=== PATIENT | male | born 1980 ===

== ENCOUNTER 2021-08-01 07:10 | Emergency (ER) | payer SELFPAY ==
--- NOTE | 2021-08-01 08:22 | RAD REPORT ---
EXAM DESCRIPTION: US - Extremity Venous Uni Ltd - 08/01/2021 7:46 am CLINICAL HISTORY: PAIN COMPARISON: No comparisons FINDINGS: Positive for deep venous thrombosis at the common femoral vein, greater saphenous vein, an d deep femoral vein. The clot in the common femoral vein is nonocclusive. IMPRESSION: Positive for nonocclusive thrombus in the common femoral vein and greater saphenous vein . Equivocal for thrombus in the deep femoral vein.
[2021-08-01 08:49] LABS: Absolute Lymphocytes (CBC) 0.8 K/uL (0.7-4.9); Basophils % 0.6 % (0-1.3); Hematocrit 38.4 % (39.6-49.0); Lymphocytes % 12.2 % (15.3-44.8); MPV 9.3 fL (7.6-11.3); RBC Red Blood Cell Count 4.57 M/uL (4.33-5.43)
[2021-08-01 08:52] LABS: Protime INR 1.19
[2021-08-01 09:09] LABS: ALT/SGPT 34 U/L (12-78); AST/SGOT 18 U/L (15-37); Albumin 4.3 g/dL (3.4-5.0); Alkaline Phosphatase 85 U/L (45-117); BUN Blood Urea Nitrogen 15 mg/dL (7-18); Bicarbonate 25 mmol/L (21-32); Bilirubin Direct 0.1 mg/dL (0-0.2); Bilirubin Total 0.5 mg/dL (0.2-1.0); Glucose Level 94 mg/dL (74-106); NT PRO-BNP 30 pg/mL (<125); Potassium 3.7 mmol/L (3.5-5.1); Protein, Total 8.3 g/dL (6.4-8.2); Sodium Level 140 mmol/L (136-145); Troponin (Emerg Dept Use Only) < 0.02 ng/mL (0.0-0.045)
--- NOTE | 2021-08-01 09:36 | RAD REPORT ---
EXAM DESCRIPTION: CT - Chest For Pe Angio - 08/01/2021 9:21 am CLINICAL HISTORY: r/o pe, positive dvt COMPARISON: No comparisons FINDINGS: Chest Wall: No suspicious thyroid nodules or pathologic lymphadenopathy. Lungs: No acute abnormality. Pleura: No significant effusions or pneumothorax. Mediastinum/nallely: No pathologic lymphadenopathy. Pulmonary arteries/Aorta: No filling defect identified. No aortic aneurysm. Heart: No significant pericardial effusion. Normal heart size. Upper abdomen: No acute abnormality. Bones: No acute abnormality. All CT scans are performed using dose optimization technique as appropriate and may include automated exposure control or mA/KV adjustment according to patient size. IMPRESSION: Negative for pulmonary embolism. No acute findings within the chest.
--- NOTE | 2021-08-01 09:57 | EDPHYS ---
Physician Documentation [facility] Name: Sarkis Fernandez Age: 41 yrs Sex: Male : 1980 Arrival Date: 08/01/2021 Time: 07:13 Bed 19 Private MD: ED Physician Lee Nixon HPI: 08/01 16:47 This 41 yrs old Unknown Male presents to ER via Ambulatory with complaints of Leg kb Swelling, Leg Pain. 16:47 The patient presents with pain, swelling, tenderness. The complaints affect the right kb leg. Context: The problem was sustained at home, resulted from an unknown cause, the patient can fully bear weight, the patient is able to ambulate. Onset: The symptoms/episode began/occurred today. Modifying factors: The symptoms are alleviated by nothing. the symptoms are aggravated by nothing. Associated signs and symptoms: Pertinent positives: calf tenderness, swelling, Pertinent negatives fever, nausea, numbness, rash, tingling, vomiting, warmth, weakness. Treatment prior to arrival includes: no previous treatment. Severity of symptoms: At their worst the symptoms were mild, in the emergency department the symptoms are unchanged. The patient has not experienced similar symptoms in the past. The patient has not recently seen a physician. Pt reports redness, swelling, and pain to right leg. States he had the J\T\J shot on 07/29/21 and flew from [place] to [place] yesterday so he is concerned about a blood clot. Historical: - Allergies: 07:22 No Known Allergies; ll1 - PMHx: 07:22 None; ll1 - PSHx: 07:22 None; ll1 - Immunization history:: Client reports receiving the Igor \T\ Igor single-dose vaccine. - Social history:: Smoking status: Patient denies any tobacco usage or history of. ROS: 16:47 Constitutional: Negative for fever, chills, and weight loss. kb 16:47 MS/extremity: Positive for erythema, pain, swelling, tenderness, of the right leg. 16:47 All other systems are negative. Exam: 09:08 ECG was reviewed by the Attending Physician. kb 09:38 Constitutional: This is a well developed, well nourished patient who is awake, alert, kb and in no acute distress. Head/Face: Normocephalic, atraumatic. ENT: Moist Mucous membranes Cardiovascular: Regular rate and rhythm with a normal S1 and S2. No gallops, murmurs, or rubs. No pulse deficits. Respiratory: Respirations even and unlabored. No increased work of breathing, no retractions or nasal flaring. Abdomen/GI: Soft, non-tender. No distention Skin: Warm, dry with normal turgor. Normal color. Neuro: Awake and alert, GCS 15, oriented to person, place, time, and situation. Moves all extremities. Normal gait. Psych: Awake, alert, with orientation to person, place and time. Behavior, mood, and affect are within normal limits. 09:38 Musculoskeletal/extremity: Extremities: grossly normal except: noted in the right leg: pain, swelling, ROM: intact in all extremities, Circulation is intact in all extremities. Sensation intact. DVT Exam: pain, swelling, tenderness, erythema. Vital Signs: 07:22 BP 133 / 89; Pulse 107; Resp 18; Temp 98.3; Pulse Ox 100% ; Weight 86.18 kg; Height 5 ll1 ft. 5 in. (165.10 cm); Pain 10/10; 07:55 BP 139 / 101; Pulse 94; Resp 18; Pulse Ox 99% on R/A; mh5 08:00 BP 139 / 101; Pulse 94; Resp 16; Pulse Ox 99% ; Pain 10/10; tc5 09:14 BP 134 / 98; Pulse 89; Resp 16; Pulse Ox 99% ; Pain 10/10; tc5 10:55 BP 142 / 106; Pulse 85; Resp 16; Pulse Ox 100% ; Pain 0/10; tc5 07:22 Body Mass Index 31.62 (86.18 kg, 165.10 cm) ll1 MDM: 07:19 Patient medically screened. kb 09:40 Data reviewed: vital signs, nurses notes. Data interpreted: Pulse oximetry: on room air kb is 99 %. Interpretation: normal. Counseling: I had a detailed discussion with the patient and/or guardian regarding: the historical points, exam findings, and any diagnostic results supporting the discharge/admit diagnosis, lab results, radiology results, the need for outpatient follow up, a family practitioner, to return to the emergency department if symptoms worsen or persist or if there are any questions or concerns that arise at home. 08/01 08:29 Order name: Basic Metabolic Panel kb 08/01 08:29 Order name: CBC with Diff; Complete Time: 08:51 kb 08/01 08:29 Order name: LFT's; Complete Time: 09:09 kb 08/01 08:29 Order name: Magnesium; Complete Time: 09:09 kb 08/01 08:29 Order name: NT PRO-BNP; Complete Time: 09:09 kb 08/01 08:29 Order name: PT-INR; Complete Time: 09:07 kb 08/01 07:21 Order name: US Extremity Venous Unilateral Ltd; Complete Time: 08:26 kb 08/01 08:29 Order name: Troponin (emerg Dept Use Only); Complete Time: 09:09 kb 08/01 08:29 Order name: EKG; Complete Time: 08:29 kb 08/01 08:29 Order name: Cardiac monitoring; Complete Time: 08:44 kb 08/01 08:29 Order name: EKG - Nurse/Tech; Complete Time: 08:44 kb 08/01 08:29 Order name: CT Chest For PE Angio; Complete Time: 09:37 kb 08/01 08:29 Order name: Basic Metabolic Panel; Complete Time: 09:09 EDMS 08/01 08:29 Order name: IV Saline Lock; Complete Time: 08:44 kb 08/01 08:29 Order name: Labs collected and sent; Complete Time: 08:44 kb 08/01 08:29 Order name: O2 Per Protocol; Complete Time: 08:44 kb 08/01 08:29 Order name: O2 Sat Monitoring; Complete Time: 08:44 kb EC:08 Rate is 87 beats/min. Rhythm is regular. QRS [place] is Normal. MN interval is normal at kb 160 msec. QRS interval is normal at 82 msec. QT interval is normal at 350 msec. Administered Medications: 10:32 Drug: Eliquis (apixaban) 10 mg Route: PO; tc5 10:53 Follow up: Response: No adverse reaction tc5 Disposition Summary: 08/01/21 09:56 Discharge Ordered Location: Home Condition: Stable Diagnosis - Acute embolism and thrombosis of other specified deep vein of right lower extremity kb Followup: kb - With: Emergency Department - When: As needed - Reason: Worsening of condition Followup: kb - With: Private Physician - When: 2 - 3 days - Reason: Recheck today's complaints, Continuance of care, Re-evaluation by your physician Discharge Instructions: - Discharge Summary Sheet kb - Deep Vein Thrombosis kb Forms: - Medication Reconciliation Form kb - Thank You Letter kb - Antibiotic Education kb - Prescription Opioid Use kb Prescriptions: - Eliquis DVT-PE Treat 30D Start 5 mg (74 tabs) Oral tablets,dose pack - take 2 tablet by ORAL route 2 times per day Take 2 tablets twice per day for 7 kb days, then take one tablet twice per day until prescription complete; 74 tablet; Refills: 0, Product Selection Permitted Addendum: 08/02/2021 13:06 Co-signature as Attending Physician, Lee Nixon MD I agree with the assessment and c reich plan of care. Signatures: Dispatcher [employer] EDAngie Contreras, MANAGER PRINTING-C MANAGER PRINTING-Lee Delong MD MD cha Lewis, Lynsay, RN RN ll1 Genie Pereira, RN RN tc5 Corrections: (The following items were deleted from the chart) 08/01 16:47 16:47 Constitutional: Negative for fever, chills, and weight loss, kb kb 16:47 16:47 Neuro: Positive for seizure activity, kb kb 16:47 16:47 All other systems are negative, kb kb
--- NOTE | 2021-08-01 09:57 | ER ---
Nurse's Notes [facility] Name: Sarkis Fernandez Age: 41 yrs Sex: Male : 1980 Arrival Date: 08/01/2021 Time: 07:13 Bed 19 Private MD: Diagnosis: Acute embolism and thrombosis of other specified deep vein of right lower extremity Presentation: 08/01 07:22 Chief complaint: Patient states: RLE pain and swelling for 2 days. Flight from [address] yesterday, had J\T\J shot 07/29/21. No fever. Coronavirus screen: Vaccine status: Patient reports receiving the 1st dose of the Covid vaccine. Client denies travel out of the [place] in the last 14 days. At this time, the client does not indicate any symptoms associated with coronavirus-19. Ebola Screen: Patient denies travel to an Ebola-affected area in the 21 days before illness onset. Initial Sepsis Screen: Does the patient meet any 2 criteria? HR > 90 bpm. No. Patient's initial sepsis screen is negative. Does the patient have a suspected source of infection? No. Patient's initial sepsis screen is negative. Risk Assessment: Do you want to hurt yourself or someone else? Patient reports no desire to harm self or others. Onset of symptoms was July 31, 2021. 07:22 Method Of Arrival: Ambulatory [facility] 07:22 Acuity: THANIA 3 ll1 Triage Assessment: 10:54 General: Appears uncomfortable, Behavior is calm, cooperative, appropriate for age. tc5 Pain: Complains of pain in right leg. Historical: - Allergies: 07:22 No Known Allergies; ll1 - PMHx: 07:22 None; ll1 - PSHx: 07:22 None; ll1 - Immunization history:: Client reports receiving the Igor \T\ Igor single-dose vaccine. - Social history:: Smoking status: Patient denies any tobacco usage or history of. Screenin:25 Abuse screen: Denies threats or abuse. Nutritional screening: No deficits noted. ll1 Tuberculosis screening: No symptoms or risk factors identified. Assessment: 07:30 Pain: Complains of pain in right leg. Neuro: No deficits noted. Cardiovascular: Reports tc5 RLE swelling, pain, redness since yesterday. pt rates the pain 10/10, states he has no PMH, he is here visiting from [facility], got the J and J shot on 07/29/21. Respiratory: No deficits noted. GI: No deficits noted. : No deficits noted. Musculoskeletal: Capillary refill < 3 seconds, Swelling. Vital Signs: 07:22 BP 133 / 89; Pulse 107; Resp 18; Temp 98.3; Pulse Ox 100% ; Weight 86.18 kg; Height 5 ll1 ft. 5 in. (165.10 cm); Pain 10/10; 07:55 BP 139 / 101; Pulse 94; Resp 18; Pulse Ox 99% on R/A; mh5 08:00 BP 139 / 101; Pulse 94; Resp 16; Pulse Ox 99% ; Pain 10/10; tc5 09:14 BP 134 / 98; Pulse 89; Resp 16; Pulse Ox 99% ; Pain 10/10; tc5 10:55 BP 142 / 106; Pulse 85; Resp 16; Pulse Ox 100% ; Pain 0/10; tc5 07:22 Body Mass Index 31.62 (86.18 kg, 165.10 cm) ll1 ED Course: 07:13 Patient arrived in ED. mr 07:19 Boo Fernandezistin, LORRAINE is PHCP. kb 07:19 Lee Nixon MD is Attending Physician. kb 07:22 Arm band placed on Patient placed in an exam room, on a stretcher. ll1 07:23 Genie Pereira, RN is Primary Nurse. tc5 07:25 Triage completed. ll1 07:25 Patient has correct armband on for positive identification. Bed in low position. Call ll1 light in reach. Side rails up X 1. Pulse ox on. NIBP on. 07:48 US Extremity Venous Unilateral Ltd In Process Unspecified. EDMS 07:55 Placed in gown. Adult w/ patient. Warm blanket given. radiation monitor on. mh5 08:44 Basic Metabolic Panel Sent. mh5 08:44 Basic Metabolic Panel Sent. mh5 08:44 CBC with Diff Sent. mh5 08:44 LFT's Sent. mh5 08:44 Magnesium Sent. mh5 08:44 NT PRO-BNP Sent. mh5 08:44 PT-INR Sent. mh5 08:44 Troponin (emerg Dept Use Only) Sent. mh5 08:44 Initial lab(s) drawn, by ut, sent to lab. EKG done, by ED staff, reviewed by Angie PETERS. Inserted saline lock: 20 gauge in right antecubital area, using aseptic technique. Blood collected. 09:21 CT Chest For PE Angio In Process Unspecified. EDMS 10:54 IV discontinued, intact, bleeding controlled, No redness/swelling at site. Pressure tc5 dressing applied. 10:54 No provider procedures requiring assistance completed. tc5 Administered Medications: 10:32 Drug: Eliquis (apixaban) 10 mg Route: PO; tc5 10:53 Follow up: Response: No adverse reaction tc5 Outcome: 09:56 Discharge ordered by MD. beltre 10:55 Discharged to home ambulatory, with friend. tc5 10:55 Condition: stable 10:55 Discharge instructions given to patient, friend. 10:56 Patient left the ED. tc5 Signatures: Dispatcher [employer] EDOH Angie Fernandez, LORRAINE DAVIS-Shreya Rivera Maria mh5 Lewis, Lynsay, DEONNA RN 1 Genie Pereira RN RN tc5
[2021-08-01] MEDS ORDERED: APIXABAN 5 MG TABLET ONE (10:56)
[2021-08-01 11:02] VITALS: TEMP 98.3
[2021-08-01 11:08] VITALS: BP 142/106; O2SAT 100
== END 2021-08-01 10:56 | disposition home or self-care (01) ==
LOC: ER 07:10
DX: I82.491 Acute embolism and thrombosis of other specified deep vein of right lower extremity (principal)
CPT/HCPCS: 36415; 71275; 80048; 80076; 83735; 83880; 84484; 85025; 85610; 93005; 93971; 99284; Q9967

== ENCOUNTER 2021-08-15 17:33 | Inpatient (IN) | payer SELFPAY ==
[2021-08-15 18:53] LABS: Basophils % 0.9 % (0-1.3); Hematocrit 37.1 % (39.6-49.0); Lymphocytes % 16.8 % (15.3-44.8); MPV 9.5 fL (7.6-11.3); RBC Red Blood Cell Count 4.49 M/uL (4.33-5.43)
[2021-08-15 19:02] LABS: Protime INR 1.68
[2021-08-15 19:07] LABS: Potassium 3.9 mmol/L (3.5-5.1)
--- NOTE | 2021-08-15 19:44 | RAD REPORT ---
EXAM DESCRIPTION: CT - Chest For Pe Angio - 08/15/2021 7:33 pm CLINICAL HISTORY: tachycardia COMPARISON: Chest For Pe Angio dated 08/01/2021 FINDINGS: Chest Wall: No suspicious thyroid nodules or pathologic lymphadenopathy. Lungs: Limited by motion. The lungs are clear. Pleura: No significant effusions or pneumothorax. Mediastinum/nallely: No pathologic lymphadenopathy. Moderate circumferential thickening of distal esopha mireya. Pulmonary arteries/Aorta: No filling defect identified. The segmental and subsegmental pulmonary aureliano migdalia are not well evaluated due to impression. No aortic aneurysm. Heart: No significant pericardial effusion. Normal heart size. Upper abdomen: Question azygos continuation of the IVC. Bones: No acute abnormality. All CT scans are performed using dose optimization technique as appropriate and may include automated exposure control or mA/KV adjustment according to patient size. IMPRESSION: Negative for pulmonary embolism. No acute findings in the chest.
--- NOTE | 2021-08-15 20:27 | RAD REPORT ---
EXAM DESCRIPTION: US - Extremity Venous Uni Ltd - 08/15/2021 8:12 pm CLINICAL HISTORY: PAIN COMPARISON: Extremity Venous Uni Ltd dated 08/01/2021 FINDINGS: The common femoral vein, femoral vein, and posterior tibial vein are noncompressible, lack flow, and have an intraluminal filling defect. Slow flow is present within a popliteal vein. IMPRESSION: Positive for deep venous thrombosis in the right lower extremity.
--- NOTE | 2021-08-15 21:04 | ER ---
Nurse's Notes [facility] Name: Sarkis Fernandez Age: 41 yrs Sex: Male : 1980 Arrival Date: 08/15/2021 Time: 17:36 Bed 20 Private MD: Diagnosis: Acute embolism and thrombosis of unspecified deep veins of right lower extremity Presentation: 08/15 17:50 Chief complaint: Patient states: seen on for Blood Clot post Igor and Igor ch5 Vaccine. Went to follow up yesterday, had ultrasound that found multiple new clots. Coronavirus screen: Vaccine status: Patient reports receiving the 1st dose of the Covid vaccine. Igor\\T\\Igor. Ebola Screen: Patient negative for fever greater than or equal to 101.5 degrees Fahrenheit, and additional compatible Ebola Virus Disease symptoms Patient denies exposure to infectious person. Patient denies travel to an Ebola-affected area in the 21 days before illness onset. No symptoms or risks identified at this time. Initial Sepsis Screen: Does the patient meet any 2 criteria? No. Patient's initial sepsis screen is negative. Does the patient have a suspected source of infection? No. Patient's initial sepsis screen is negative. Risk Assessment: Do you want to hurt yourself or someone else? Patient reports no desire to harm self or others. 17:50 Method Of Arrival: Ambulatory 5 17:50 Acuity: THANIA 2 ch5 20:00 Onset of symptoms was August 11, 2021. cc4 Triage Assessment: 17:54 General: Appears in no apparent distress. uncomfortable, Behavior is calm, cooperative. ch5 Pain: Complains of pain in right quadriceps Alleviated by rest, Aggravated by increased activity, weight bearing. Historical: - Allergies: 17:54 No Known Allergies; ch5 - Home Meds: 17:54 None [Active]; ch5 - PMHx: 17:54 blood clots; ch5 - PSHx: 17:54 None; ch5 - Immunization history:: Adult Immunizations up to date. - Social history:: Smoking status: Patient denies any tobacco usage or history of. Screenin:00 Abuse screen: Denies threats or abuse. Nutritional screening: No deficits noted. sl2 Tuberculosis screening: No symptoms or risk factors identified. Fall Risk None identified. Assessment: 18:00 General: Appears in no apparent distress. well groomed, well developed, Behavior is sl2 calm, cooperative. 18:00 Pain: Denies pain. Neuro: No deficits noted. Cardiovascular: No deficits noted. sl2 Respiratory: No deficits noted. GI: No deficits noted. : No deficits noted. EENT: No deficits noted. Derm: No deficits noted. Musculoskeletal: No deficits noted. 20:00 Reassessment: Patient appears in no apparent distress at this time. Resting on cc4 stretcher talking to visitor; NAD; # 20 g saline lock intact right AC with no s/sx's of infection/infiltration noted of site; CM monitoring SR with no ectopy; O2 sat 99-100% RA; T 99.2 oral; voices no complaints. 22:35 Reassessment: Patient appears in no apparent distress at this time. No changes from cc4 previously documented assessment. IV NS 1 liter hung to saline lock right AC \\T\\ infusing \\T\\ bolus rate with no s/sx's of infiltration; swabbed for covid-19; paty. well; voices no complaints. 08/16 00:30 Reassessment: Patient appears in no apparent distress at this time. No changes from cc4 previously documented assessment. IV NS 1 liter infused; IV NS additional liter hung to IV right AC \\T\\ infusing \\T\\ 125 ml/hr/pump with no s/sx's of infitration; voices no complaints. 01:30 Reassessment: Patient appears in no apparent distress at this time. No changes from cc4 previously documented assessment. Lovenox 90 mg given SQ right lower quad abdomen, paty. well; temp 99.9 F. 03:25 Reassessment: c/o right leg pain 5/10 on pain scale; REUBEN Keith notified with new cc4 orders received; medicated as ordered(see orders); IV NS patent/infusing right AC \\T\\ 125ml/hr/pump with no s/sx's of infection/infiltration noted of site; voided total 2600 ml clear yellow urine since 1899; NAD. Vital Signs: 08/15 17:50 BP 133 / 92; Pulse 107; Resp 20; Temp 98.9; Pulse Ox 100% ; Weight 88.9 kg; Height 5 ch5 ft. 5 in. (165.10 cm); Pain 1/; 18:51 BP 133 / 91; Pulse 100; Resp 12; Pulse Ox 100% ; 5 19:00 BP 128 / 89; Pulse 96; Resp 20; Temp 99.2; Pulse Ox 99% on R/A; cc4 20:00 BP 138 / 93; Pulse 102; Resp 20; Pulse Ox 100% on R/A; cc4 21:00 BP 127 / 91; Pulse 100; Resp 20; Pulse Ox 100% on R/A; cc4 22:00 BP 119 / 93; Pulse 93; Resp 20; Pulse Ox 99% on R/A; cc4 23:00 BP 134 / 76; Pulse 91; Resp 20; Pulse Ox 99% on R/A; cc4 08/16 00:00 BP 118 / 73; Pulse 73; Resp 18; Pulse Ox 99% on R/A; Pain 3/10; dc2 01:00 BP 120 / 80; Pulse 74; Resp 18; Pulse Ox 100% ; Pain 3/10; dc2 01:30 Temp 99.9(O); cc4 02:00 BP 119 / 78; Pulse 79; Resp 18; Pulse Ox 100% ; Pain 5/10; dc2 02:45 BP 115 / 79; Pulse 81; Resp 18; Pulse Ox 97% on R/A; Pain 5/10; dc2 08/15 17:50 Body Mass Index 32.62 (88.90 kg, 165.10 cm) [facility] Vitals: 01:30 Cardiac Rhythm Assessment Regular Sinus rhythm. [facility] ED Course: 08/15 17:36 Patient arrived in ED. mr 17:54 Triage completed. [facility] 17:54 Arm band placed on right wrist. [facility] 18:29 Initial lab(s) drawn, by md, held in ED. Inserted saline lock: 20 gauge in right [facility] antecubital area, using aseptic technique. Blood collected. 18:30 Patient has correct armband on for positive identification. Bed in low position. Call [facility] light in reach. Side rails up X 1. Adult w/ patient. jinriksha driver on. Pulse ox on. NIBP on. 18:30 EKG done, by ED staff, reviewed by Lee ALEXIS. [facility] 18:47 Shaila Parrish, RN is Primary Nurse. [facility] 18:49 Protime (+inr) Sent. mh5 18:49 Ptt, Activated Sent. mh5 18:49 Basic Metabolic Panel Sent. mh5 18:50 CBC with Diff Sent. 5 18:58 Lee Pace PA is PHCP. cp 18:58 Krzysztof Lanier MD is Attending Physician. cp 19:20 Aleks Quintero MD is Attending Physician. cp 19:34 CT Chest For PE Angio In Process Unspecified. EDMS 20:12 US Extremity Venous Unilateral Ltd: history of right leg DVT In Process Unspecified. EDMS 21:03 Sal Lanier MD is Hospitalizing Provider. cp 23:17 COVID-19 (Coronavirus) Document "Date of Onset" if Symptomatic Sent. cc4 08/16 01:25 CORONAVIRUS Sent. cc4 03:00 No provider procedures requiring assistance completed. dc2 03:25 IV cc4 Administered Medications: 08/15 22:35 Drug: NS 0.9% 1000 ml Route: IV; Rate: 1 bolus; Site: right antecubital; cc4 08/16 00:30 Follow up: Response: No adverse reaction; Rate change bolus; IV Status: Completed cc4 infusion; IV Intake: 1000ml 00:30 Drug: NS 0.9% 1000 ml Route: IV; Rate: 125 ml/hr; Site: right antecubital; cc4 03:25 Follow up: Response: No adverse reaction; Rate change 125 ml/hr; IV Intake: 400ml cc4 01:30 Drug: Lovenox (enoxaparin) 1 mg/kg Route: Sub-Q; Site: right lower abdomen; cc4 03:25 Follow up: Urine output 2600 ml; Response: No adverse reaction cc4 03:15 Drug: fentaNYL (PF) 25 mcg Route: IVP; Site: right antecubital; cc4 03:25 Follow up: Response: No adverse reaction cc4 03:15 Drug: Zofran (Ondansetron) 4 mg Route: IVP; Site: right antecubital; cc4 03:25 Follow up: Response: No adverse reaction cc4 Intake: 00:30 IV: 1000ml; Total: 1000ml. cc4 03:25 IV: 400ml; Total: 1400ml. cc4 Output: 03:25 Urine: 2600ml; Total: 2600ml. cc4 Outcome: 08/15 21:03 Decision to Hospitalize by Provider. cp 10/29 03:25 Admitted to Med/surg accompanied by tech, via wheelchair, room 420, Other IV NS \\T\\ cc4 125ml/hr Report called to DEONNA Monaco. Condition: stable Instructed on the need for admit, Demonstrated understanding of instructions. 04:21 Patient left the ED. cc4 Signatures: Dispatcher [employer] EDVA Shreya Villafana mr Lee Pace PA PA Anne Gaffney [facility] Kiet Harley, RN RN ch5 Noemy Valdez, RN RN cc4 lGory Jefferson, RN RN dc2 Shaila Parrish RN RN sl2 Corrections: (The following items were deleted from the chart) 08/15 23:17 22:35 NS 0.9% 1000 ml IV at 125 ml/hr in right antecubital cc4 cc4 23:27 20:00 BP 128 / 89; Pulse 96bpm; Resp 20bpm; Pulse Ox 99% RA; Temp 99.2F; cc4 cc4
--- NOTE | 2021-08-15 21:04 | EDPHYS ---
Physician Documentation [facility] Name: Sarkis Fernandez Age: 41 yrs Sex: Male : 1980 Arrival Date: 08/15/2021 Time: 17:36 Bed 20 Private MD: ED Physician Aleks Quintero HPI: 08/15 19:15 This 41 yrs old Unknown Male presents to ER via Ambulatory with complaints of Blood cp Clots. 19:15 The patient presents with pain, that is acute, tenderness. cp 19:15 The complaints affect the right leg. Context: diagnosed with DVT 08-01-2021. cp 19:15 Associated signs and symptoms: Pertinent negatives fever, chest pain, shortness of cp breath. 19:15 Patient reports he was diagnosed with DVT right leg on 08-01-2021. Cause of DVT cp possibly from J[employer]T\\J Covid vaccination received several days earlier and/or plane flight from [place] to [place] on 07-31-2021. Patient reports he started taking Eliquis 4 days after diagnosis and has been taking 10 mg twice daily since. Referred from local clinic with concern that blood clot in right leg has been increasing. Historical: - Allergies: 17:54 No Known Allergies; ch5 - Home Meds: 17:54 None [Active]; ch5 - PMHx: 17:54 blood clots; ch5 - PSHx: 17:54 None; ch5 - Immunization history:: Adult Immunizations up to date. - Social history:: Smoking status: Patient denies any tobacco usage or history of. ROS: 19:20 MS/extremity: Positive for swelling, tenderness, of the right leg. cp 19:20 Eyes: Negative for injury, pain, redness, and discharge. cp 19:20 Constitutional: Negative for body aches, fever. 19:20 ENT: Negative for ear pain, sore throat, difficulty swallowing, difficulty handling secretions. 19:20 Cardiovascular: Negative for chest pain, palpitations. 19:20 Respiratory: Negative for cough, shortness of breath, wheezing. 19:20 Abdomen/GI: Negative for abdominal pain, nausea, vomiting, and diarrhea. 19:20 Skin: Negative for rash. 19:20 Neuro: Negative for altered mental status, headache, syncope, weakness. 19:20 All other systems are negative. Exam: 18:45 ECG was reviewed by the Attending Physician. cp 19:25 Constitutional: The patient appears in no acute distress, alert, awake, cp non-diaphoretic, non-toxic, well developed, well nourished. 19:25 Head/Face: Normocephalic, atraumatic. cp 19:25 Eyes: Periorbital structures: appear normal, Conjunctiva: normal, no exudate, no injection, Sclera: no appreciated abnormality, Lids and lashes: appear normal, bilaterally. 19:25 ENT: External ear(s): are unremarkable, Nose: is normal, Mouth: Lips: moist, Oral mucosa: moist, Posterior pharynx: Airway: no evidence of obstruction, patent. 19:25 Chest/axilla: Inspection: normal, Palpation: is normal, no crepitus, no tenderness. 19:25 Cardiovascular: Rate: tachycardic, Rhythm: regular, Edema: is not appreciated, JVD: is not appreciated. 19:25 Respiratory: the patient does not display signs of respiratory distress, Respirations: normal, no use of accessory muscles, no retractions, labored breathing, is not present, Breath sounds: are clear throughout, no decreased breath sounds, no stridor, no wheezing. 19:25 Abdomen/GI: Inspection: abdomen appears normal, Palpation: abdomen is soft and non-tender, in all quadrants. 19:25 Back: pain, is absent, ROM is normal. 19:25 Musculoskeletal/extremity: Extremities: grossly normal except: noted in the right leg: tenderness. Vital Signs: 17:50 BP 133 / 92; Pulse 107; Resp 20; Temp 98.9; Pulse Ox 100% ; Weight 88.9 kg; Height 5 ch5 ft. 5 in. (165.10 cm); Pain 1/10; 18:51 BP 133 / 91; Pulse 100; Resp 12; Pulse Ox 100% ; mh5 19:00 BP 128 / 89; Pulse 96; Resp 20; Temp 99.2; Pulse Ox 99% on R/A; cc4 20:00 BP 138 / 93; Pulse 102; Resp 20; Pulse Ox 100% on R/A; cc4 21:00 BP 127 / 91; Pulse 100; Resp 20; Pulse Ox 100% on R/A; cc4 22:00 BP 119 / 93; Pulse 93; Resp 20; Pulse Ox 99% on R/A; cc4 23:00 BP 134 / 76; Pulse 91; Resp 20; Pulse Ox 99% on R/A; cc4 08/16 00:00 BP 118 / 73; Pulse 73; Resp 18; Pulse Ox 99% on R/A; Pain 3/10; dc2 01:00 BP 120 / 80; Pulse 74; Resp 18; Pulse Ox 100% ; Pain 3/10; dc2 01:30 Temp 99.9(O); cc4 02:00 BP 119 / 78; Pulse 79; Resp 18; Pulse Ox 100% ; Pain 5/10; dc2 02:45 BP 115 / 79; Pulse 81; Resp 18; Pulse Ox 97% on R/A; Pain 5/10; dc2 08/15 17:50 Body Mass Index 32.62 (88.90 kg, 165.10 cm) ch5 MDM: 08/15 19:00 Patient medically screened. cp 19:00 Differential diagnosis: DVT, cellulitis, pulmonary embolism. 20:35 Data reviewed: vital signs, nurses notes, lab test result(s), EKG, radiologic studies, cp CT scan, ultrasound. 20:35 Test interpretation: by ED physician or midlevel provider: ECG. 20:45 Physician consultation: Aishwarya Mike MD was contacted at 20:45, regarding cp consult, patient's condition, would like medications started, Lovenox 1 mg/kg bid, admit patient to hospitalist services. 21:00 Physician consultation: Arya Prado was called at 21:00, was contacted at 21:00, cp regarding admission, to the telemetry unit. patient's condition, and will see patient in ED, shortly. 08/15 18:33 Order name: CBC with Diff; Complete Time: 19: rn 08/15 19:09 Interpretation: Normal except: HGB 12.3; HCT 37.1; MN% 12.4. cp 08/15 18:33 Order name: Basic Metabolic Panel; Complete Time: 19: rn 08/15 19:09 Interpretation: Normal except: NA 135; GLUC 107; GFR 86. cp 08/15 18:33 Order name: Protime (+inr); Complete Time: 19: rn 08/15 18:33 Order name: Ptt, Activated; Complete Time: : rn 08/15 23:15 Order name: COVID-19 (Coronavirus) Document "Date of Onset" if Symptomatic bb 08/15 23:26 Order name: CORONAVIRUS EDRI 08/15 19:11 Order name: CT Chest For PE Angio; Complete Time: 20:26 cp 08/15 20:26 Interpretation: Report reviewed. cp 08/15 19:11 Order name: US Extremity Venous Unilateral Ltd: history of right leg DVT; Complete cp Time: 20:30 08/16 00:17 Order name: SARS-COV-2 RT PCR; Complete Time: 00:25 EDRI 08/15 18:33 Order name: IV Start; Complete Time: 18:50 rn 08/15 18:33 Order name: EKG; Complete Time: 18:33 rn 08/15 18:33 Order name: EKG - Nurse/Tech; Complete Time: 18:49 rn EC:45 Rate is 96 beats/min. Rhythm is regular. NH interval is normal. QRS interval is normal. cp QT interval is normal. Interpreted by me. Reviewed by me. Administered Medications: 22:35 Drug: NS 0.9% 1000 ml Route: IV; Rate: 1 bolus; Site: right antecubital; cc4 08/16 00:30 Follow up: Response: No adverse reaction; Rate change bolus; IV Status: Completed cc4 infusion; IV Intake: 1000ml 00:30 Drug: NS 0.9% 1000 ml Route: IV; Rate: 125 ml/hr; Site: right antecubital; cc4 03:25 Follow up: Response: No adverse reaction; Rate change 125 ml/hr; IV Intake: 400ml cc4 01:30 Drug: Lovenox (enoxaparin) 1 mg/kg Route: Sub-Q; Site: right lower abdomen; cc4 03:25 Follow up: Urine output 2600 ml; Response: No adverse reaction cc4 03:15 Drug: fentaNYL (PF) 25 mcg Route: IVP; Site: right antecubital; cc4 03:25 Follow up: Response: No adverse reaction cc4 03:15 Drug: Zofran (Ondansetron) 4 mg Route: IVP; Site: right antecubital; cc4 03:25 Follow up: Response: No adverse reaction cc4 Disposition: 06:09 Co-signature as Attending Physician, Aleks Quintero MD. 7 Disposition Summary: 08/15/21 21:03 Hospitalization Ordered Hospitalization Status: Inpatient Admission cp Provider: Sal Lanier cp Location: Telemetry/MedSurg (Inpatient) cp Condition: Stable cp Problem: an ongoing problem cp Symptoms: are unchanged cp Bed/Room Type: Standard cp Room Assignment: 420(08/16/21 01:21) cg Diagnosis - Acute embolism and thrombosis of unspecified deep veins of right lower extremity cp Forms: - Medication Reconciliation Form cp - SBAR form cp Signatures: Dispatcher [employer] EDMS Krzysztof Lanier MD MD rn Lee Pace PA PA cp Garcia, Cindy, RN RN cg Aleks Quintero MD MD mh7 Kiet Harley RN RN ch5 Noemy Valdez RN RN cc4 Corrections: (The following items were deleted from the chart) 01:08/15 21:03 cp cg 08/16 17:32 08/15 19:15 Patient reports he was diagnosed with DVT right leg on 08-01-2021. Cause of cp DVT possibly from J\\T\\J Covid vaccination received several days earlier and/or plane flight from [place] to [place] on 07-31-2021. Patient reports he started taking Eliquis 4 days after diagnosis and has been taking 10 mg twice daily since. cp
--- NOTE | 2021-08-15 21:31 | P.HP ---
Certification for Inpatient Patient admitted to: Observation With expected LOS: <2 Midnights Patient will require the following post-hospital care: None Practitioner: I am a practitioner with admitting privileges, knowledge of patient current condition, hospital course, and medical plan of care. Services: Services provided to patient in accordance with Admission requirements found in Title 42 Section 412.3 of the Code of Federal Regulations Patient History Date of Service: 08/15/21 Primary Care Provider: Juan Manuel love Reason for admission: DVT failed OP management History of Present Illness: 41-year-old otherwise healthy male presents emergency department for right lower extremity pain. Patient was seen in the emergency department on 08/01/2021 and diagnosed with a right-sided DVT, patient was prescribed Eliquis which she has been compliant with at home, patient went for a follow-up with his primary care doctor and a repeat ultrasound was ordered which demonstrated worsening/more acute DVT. Patient was evaluated in the emergency department labs were relatively unremarkable CT chest was negative for pulmonary embolism ultrasound right lower extremity redemonstrated acute DVT. Case was discussed with hematology by ED provider who recommended admission with treatment with Lovenox 1 mg/kg twice daily subcu. Will admit for further evaluation and management of DVT failed outpatient therapy - Past Medical/Surgical History -: None -: None Psychosocial/ Personal History: Patient is a missionary, currently staying with hinduism - Family History Family History: Reviewed- Non-Contributory - Social History Smoking Status: Never smoker Alcohol use: No CD- Drugs: No Caffeine use: Yes Place of Residence: Home Review of Systems 10-point ROS is otherwise unremarkable Musculoskeletal: Leg Pain, As per HPI Physical Examination - Physical Exam General: Alert, In no apparent distress, Oriented x3 HEENT: Atraumatic, PERRLA, Mucous membr. moist/pink, EOMI, Sclerae nonicteric Neck: Supple, 2+ carotid pulse no bruit, No LAD, Without JVD or thyroid abnormality Respiratory: Clear to auscultation bilaterally, Normal air movement Cardiovascular: Regular rate/rhythm, Normal S1 S2 Gastrointestinal: Normal bowel sounds, No tenderness Musculoskeletal: No tenderness Integumentary: No rashes Neurological: Normal speech, Normal strength at 5/5 x4 extr, Normal tone, Normal affect Lymphatics: No axilla or inguinal lymphadenopathy - Studies Laboratory Data (last 24 hrs) 08/15/21 18:41: PT 19.4 H, INR 1.68, APTT 54.2 H 08/15/21 18:41: Sodium 135 L, Potassium 3.9, BUN 9, Creatinine 0.96, Glucose 107 H 08/15/21 18:41: WBC 5.80, Hgb 12.3 L, Hct 37.1 L, Plt Count 232 Assessment and Plan - Plan Assessment: DVT right lower extremity failed outpatient management with Eliquis Plan: DVT right lower extremity failed outpatient management with Eliquis: Hematology consulted while patient was in emergency department recommend Lovenox 1 mg/kg twice daily subcu which was started tonight. Will monitor daily CBC/chemistry continue with Lovenox. DVT possibly related to travel/flight versus [employer] Covid vaccination. Appreciate further input from hematology. DVT PPX: Full dose Lovenox Code status: Full code Discharge Plan: Home Plan to discharge in: 24 Hours - Advance Directives Does patient have a Living Will: No Does patient have a Durable POA for Healthcare: No - Code Status/Comfort Care Code Status Assessed: Yes (Full code) Critical Care: No Time Spent Managing Pts Care (In Minutes): 55
[2021-08-15] MEDS ORDERED: NA CHLORIDE 0.9% 1,000 ML ONE ×2 (23:15→23:40)
[2021-08-16] MEDS ORDERED: ENOXAPARIN 100 MG/ML SYR SQ ONE (01:54)
[2021-08-16] MEDS ORDERED: ONDANSETRON 4 MG/2 ML VIAL ONE (03:38)
[2021-08-16] MEDS ORDERED: FENTANYL CITR 100 MCG/2 ML ONE (03:38)
[2021-08-16] MEDS ORDERED: ONDANSETRON 4 MG/2 ML VIAL IV PRN (03:50)
[2021-08-16] MEDS: ACETAMINOPHEN 500 MG TAB PO PRN ×2 (04:22→19:58)
[2021-08-16 04:53] VITALS: BMI 32.5
[2021-08-16 04:58] VITALS: O2SAT 99
[2021-08-16 06:16] LABS: Basophils % 0.5 % (0-1.3); Hematocrit 32.9 % (39.6-49.0); Lymphocytes % 19.5 % (15.3-44.8); MPV 9.3 fL (7.6-11.3); RBC Red Blood Cell Count 3.96 M/uL (4.33-5.43)
[2021-08-16 06:26] LABS: ALT/SGPT 31 U/L (12-78); AST/SGOT 20 U/L (15-37); Albumin 2.9 g/dL (3.4-5.0); Alkaline Phosphatase 65 U/L (45-117); BUN Blood Urea Nitrogen 7 mg/dL (7-18); Bicarbonate 27 mmol/L (21-32); Bilirubin Total 0.4 mg/dL (0.2-1.0); Glucose Level 95 mg/dL (74-106); Potassium 3.9 mmol/L (3.5-5.1); Protein, Total 7.5 g/dL (6.4-8.2); Sodium Level 140 mmol/L (136-145)
[2021-08-16 07:39] LABS: Blood Morphology Comment NOTED (NOT SEEN); Platelet Estimate ADEQ; Polychromasia SLIGHT; Smudge Cells PRESENT
--- NOTE | 2021-08-16 07:45 | EKG ---
Test Date: 2021-08-15 Test Time: 18:40:27 [employer]: DARLEEN MEASUREMENT RESULTS: Intervals: Rate: 96 WA: 148 QRSD: 82 QT: 342 QTc: 432 [place]: P: 56 WA: 148 QRS: 35 T: 16 INTERPRETIVE STATEMENTS: Normal sinus rhythm Normal ECG Compared to ECG 08/01/2021 09:03:51 No significant changes Electronically Signed On 08-16-21 07:44:09 CDT by Brody Lund
[2021-08-16 10:17] LABS: Urine Appearance CLEAR (Clear); Urine Bilirubin NEGATIVE (Negative); Urine Blood NEGATIVE (Negative); Urine Color YELLOW (Yellow); Urine Glucose NEGATIVE (Negative); Urine Microscopic Reflex NO UMIC; Urine Protein NEGATIVE (Negative); Urine Specific Gravity 1.015 (1.005-1.030)
[2021-08-16] MEDS: ENOXAPARIN 100 MG/ML SYR SQ SCH (11:59)
--- NOTE | 2021-08-16 16:38 | P.PN ---
Date of Service: 08/16/21 Subjective: no acute events overnight continues with R upper thigh pain, slight improvement He states he was taking 50 mg twice daily Xarelto for 3 days prior to taking Eliquis. Denies missing any dosage. reports some tingling sensation on the right foot ROS: 10 point ROS as noted above, otherwise negative Physical exam GEN: Alert, oriented, NAD HEENT: Normal conjunctiva, sclera anicteric CV: Regular rate and rhythm, no edema Pulm: Nonlabored respiration on room air ABD: Soft, nontender, nondistended MSK: slight tenderness in R upper thigh Neuro: Normal speech, normal affect Problem List DVT right lower extremity failed outpatient management with Eliquis Possibly failed outpatient management with Eliquis, reportedly DVT was worse on outpatient ultrasound exam. Patient with worsening pain Hematology consulted in ED, recommended Lovenox 1mg/kg twice daily. On further discussion, patient states that he was taking Xarelto for about 3 days, correct dosing of 50 mg twice daily prior to taking Eliquis for 5 days or so, and then developed the pain Unclear if this would truly qualify for Xarelto failure, possibly Eliquis failure Discussed with hematology, will further discuss with radiology to see if clot burden truly worsened If clot did not change, then this should not be considered treatment failure. DVT possibly related to [employer] Covid vaccination. Patient states he first noted symptoms prior to getting on his flight. DVT PPX: Full dose Lovenox Code status: Full code Dispo: Anticipate discharge home in 24 hours, unless patient would need to be bridged to Coumadin Time Spent Managing Pts Care (In Minutes): 35
[2021-08-16] MEDS ORDERED: MELATONIN 5 MG TABLET PO PRN (19:47)
[2021-08-17] MEDS: ENOXAPARIN 100 MG/ML SYR SQ SCH (00:03)
[2021-08-17 05:56] LABS: Basophils % 0.9 % (0-1.3); Hematocrit 34.8 % (39.6-49.0); Lymphocytes % 23.8 % (15.3-44.8); RBC Red Blood Cell Count 4.18 M/uL (4.33-5.43)
[2021-08-17 06:24] LABS: ALT/SGPT 37 U/L (12-78); AST/SGOT 23 U/L (15-37); Albumin 2.9 g/dL (3.4-5.0); Alkaline Phosphatase 71 U/L (45-117); BUN Blood Urea Nitrogen 11 mg/dL (7-18); Bicarbonate 25 mmol/L (21-32); Bilirubin Total 0.4 mg/dL (0.2-1.0); Glucose Level 92 mg/dL (74-106); Potassium 3.7 mmol/L (3.5-5.1); Protein, Total 7.7 g/dL (6.4-8.2); Sodium Level 139 mmol/L (136-145)
--- NOTE | 2021-08-17 07:47 | P.DS ---
Admission Date: 08/16/21 Discharge Date: 08/17/21 Primary Care Provider: Juan Manuel love Disposition: ROUTINE DISCHARGE Discharge Condition: GOOD Reason for Admission: DVT failed OP management Procedures: CTA Chest (08/15): FINDINGS: Chest Wall: No suspicious thyroid nodules or pathologic lymphadenopathy. Lungs: Limited by motion. The lungs are clear. Pleura: No significant effusions or pneumothorax. Mediastinum/nallely: No pathologic lymphadenopathy. Moderate circumferential thickening of distal esophagus. Pulmonary arteries/Aorta: No filling defect identified. The segmental and subsegmental pulmonary arteries are not well evaluated due to impression. No aortic aneurysm. Heart: No significant pericardial effusion. Normal heart size. Upper abdomen: Question azygos continuation of the IVC. Bones: No acute abnormality. All CT scans are performed using dose optimization technique as appropriate and may include automated exposure control or mA/KV adjustment according to patient size. IMPRESSION: Negative for pulmonary embolism. No acute findings in the chest. Venous U/S (08/15): FINDINGS: The common femoral vein, femoral vein, and posterior tibial vein are noncompressible, lack flow, and have an intraluminal filling defect. Slow flow is present within a popliteal vein. IMPRESSION: Positive for deep venous thrombosis in the right lower extremity. Problem List DVT right lower extremity with increased pain, outpatient management with Eliquis Brief History of Present Illness: 41-year-old otherwise healthy male presents emergency department for right lower extremity pain. Patient was seen in the emergency department on 08/01/2021 and diagnosed with a right-sided DVT, patient was prescribed Eliquis which she has been compliant with at home, patient went for a follow-up with his primary care doctor and a repeat ultrasound was ordered which demonstrated worsening/more acute DVT. Patient was evaluated in the emergency department labs were relatively unremarkable CT chest was negative for pulmonary embolism ultrasound right lower extremity redemonstrated acute DVT. Case was discussed with hematology by ED provider who recommended admission with treatment with Lovenox 1 mg/kg twice daily subcu. Will admit for further evaluation and management of DVT failed outpatient therapy Hospital Course: Patient continue treatment with Lovenox 1 mg/kg. Imaging was reviewed with radiology, who felt there was no definite worsening of the patient's clot burden. Venous ultrasound were compared from this admission and from approximately 2 weeks ago. He did state that he he could not account for the posterior tibial venous clot, as it was not imaged on the initial study. This was discussed with hematology, who stated this was not a treatment failure and recommended discharge home to continue Eliquis. Patient stated he took 3 days of Xarelto 50 mg twice daily while waiting for his Eliquis prescription, then took Eliquis 5 mg twice daily for 5-6 days and then developed the worsening of his leg pain. With Xarelto may be a better option for the patient, however, he states that he or family member checked, and Xarelto is not available in his home country of [place]. He states Eliquis is available. He was advised to elevate the affected leg, wear compression stockings, and strict adherence to the anticoagulation. This most likely was provoked by his recent vaccination. He states he felt the beginning of the painful sensation in his leg prior to boarding the airplane. He is to follow-up with hematology in ~3 weeks. Follow-up with PCP in 3-5 days. Vital Signs/Physical Exam: Temp Pulse Resp BP Pulse Ox 98.6 F 77 18 119/72 99 08/17/21 04:00 08/17/21 04:00 08/17/21 04:00 08/17/21 04:00 08/17/21 04:00 General: Alert, In no apparent distress, Oriented x3 HEENT: Sclerae nonicteric Respiratory: Clear to auscultation bilaterally, Normal air movement Cardiovascular: No edema, Regular rate/rhythm, No murmurs Gastrointestinal: Soft and benign, Non-distended, No tenderness Musculoskeletal: No swelling, No erythema Integumentary: No significant lesion Neurological: Normal speech, Normal strength at 5/5 x4 extr, Sensation intact, Normal affect Laboratory Data at Discharge: WBC 4.10 K/uL (4.3-10.9) L D 08/17/21 05:11 Hgb 11.4 g/dL (13.6-17.9) L 08/17/21 05:11 Hct 34.8 % (39.6-49.0) L 08/17/21 05:11 Plt Count 171 K/uL (152-406) 08/17/21 05:11 PT 19.4 SECONDS (9.5-12.5) H 08/15/21 18:41 INR 1.68 08/15/21 18:41 APTT 54.2 SECONDS (24.3-36.9) H 08/15/21 18:41 Sodium 139 mmol/L (136-145) 08/17/21 05:11 Potassium 3.7 mmol/L (3.5-5.1) 08/17/21 05:11 BUN 11 mg/dL (7-18) 08/17/21 05:11 Creatinine 0.83 mg/dL (0.55-1.3) 08/17/21 05:11 Glucose 92 mg/dL (74-106) 08/17/21 05:11 Total Bilirubin 0.4 mg/dL (0.2-1.0) 08/17/21 05:11 AST 23 U/L (15-37) 08/17/21 05:11 ALT 37 U/L (12-78) 08/17/21 05:11 Alkaline Phosphatase 71 U/L (45-117) 08/17/21 05:11 Home Medications: Apixaban [Eliquis] 5 mg PO BID 30 Days #60 tablet 08/17/21 Tramadol HCl [Ultram] 50 mg PO Q8H PRN #10 tablet 08/17/21 New Medications: Apixaban [Eliquis] 5 mg PO BID 30 Days #60 tablet Tramadol HCl [Ultram] 50 mg PO Q8H PRN #10 tablet PRN Reason: Pain Scale 8-10 (Severe) Physician Discharge Instructions: PROBLEM: Right Leg DVT GOAL: Clear understanding of disease process INSTRUCTIONS: You were found to have a blood clot in your right leg. This was compared to your prior ultrasound and our radiologist does not see any worsening / enlargement of the blood clot. Blood clots were found in your common femoral vein, deep femoral vein, saphenous vein, posterior tibial vein. Hematology, Dr. Walsh, was consulted. She recommended continuing the Eliquis as this does not seem to be a treatment failure. Recommend strict adherence to the medication, high compression stockings, and elevation of your right leg. Follow up with PCP in 3-5 days. Follow up with Dr. Walsh in ~2-3 weeks If symptoms worsen, please go to the ER. If you have any questions regarding hospital stay, feel free to call . Diet: Heart Healthy Activity: As Tolerated DME DME: Date Ordered: Name of Company: [facility] Services Needed: None Name of Company: Date or Referral: IMMUNIZATION Influenza Vaccine Indicated: No Influenza Vaccine Given: Date Given: Pneumonia Vaccine Indicated: No Pneumonia Vaccine Given: Date Given: Followup: Aishwarya Montenegro MD [ACTIVE - CAN ADMIT] - Time spent managing pt's care (in minutes): 45
[2021-08-17 08:34] VITALS: BP 119/75; TEMP 98.1
== END 2021-08-17 09:59 | disposition home or self-care (01) | DRG 301 ==
LOC: ER 17:33 → ERHOLD 21:29 → 4TH 08-16 03:16 → OBSVTOIN 08-16 11:46
PROVIDERS: ADMIT Hospitalist; ATTEND Hospitalist
DX: I82.411 Acute embolism and thrombosis of right femoral vein (principal); I82.441 Acute embolism and thrombosis of right tibial vein; Z79.01 Long term (current) use of anticoagulants; Z79.899 Other long term (current) drug therapy; Z20.822 Contact with and (suspected) exposure to COVID-19
CPT/HCPCS: 36415; 71275; 80048; 80053; 81003; 85025; 85610; 85730; 93005; 93971; 96361; 96372; 96374; 96375; 99285; G0378; J1650; J2405; J3010; J7030; Q9967; U0003